=== PATIENT | female | born 1940 | race Caucasian/White ===

== ENCOUNTER 2016-12-25 09:49 | Emergency (ER) | payer MEDICARE, BC ==
[2016-12-25] MEDS ORDERED: SODIUM CHLORIDE 0.9% 500 ML IV STA (10:23)
[2016-12-25] MEDS ORDERED: MECLIZINE 12.5 MG TAB PO STA (10:23)
[2016-12-25 10:56] LABS: Glucose,Whole Blood 90 mg/dL (75-99)
--- NOTE | 2016-12-25 10:59 | ED ---
General Adult HPI - General Chief complaint: Dizziness Stated complaint: DIZZINESS, POSS MED REACTION Time Seen by Provider: 12/25/16 10:10 Source: patient, family, RN notes reviewed Mode of arrival: wheelchair Limitations: no limitations - History of Present Illness Initial comments: 76-year-old female presenting for dizziness. Patient states that symptoms have been going on since Friday. She states that last she saw a Neuropsychology Division Chief who put her on a Medrol Dosepak for skin rash. She also received a shot of steroid in the office at that time. She states that she had taken several days of steroid medication and then on Friday that's when the dizziness began. She states she stopped the steroid on Friday. The rash has resolved. States that she feels like the room spins in intense episodes that gradually improve with rest. This made worse with positional changes. She denies any history of vertigo. She denies any syncope. She denies any chest pain or shortness of breath associated. - Related Data Home Medications Medication Instructions Recorded Confirmed Aspirin 81 mg PO HS 12/25/16 12/25/16 Biotin 5,000 mcg PO DAILY 12/25/16 12/25/16 Ergocalciferol (Vitamin D2) 50,000 unit PO DAILY 12/25/16 12/25/16 [Vitamin D2] Fish Oil/Dha/Epa [Fish Oil 1,200 1 cap PO DAILY 12/25/16 12/25/16 mg Fish Oil] Glucosamine Sulfate 1,500 mg PO DAILY 12/25/16 12/25/16 Lisinopril-Hctz 10-12.5 mg 1 tab PO DAILY 12/25/16 12/25/16 [Zestoretic 10-12.5] predniSONE 1 mg PO DAILY 12/25/16 12/25/16 Previous Rx's Medication Instructions Recorded Meclizine [Antivert] 25 mg PO QID PRN #16 tab 12/25/16 Allergies Allergy/AdvReac Type Severity Reaction Status Date / Time No Known Allergies Allergy Verified 12/25/16 10:29 Review of Systems ROS Statement: Those systems with pertinent positive or pertinent negative responses have been documented in the HPI. ROS Other: All systems not noted in ROS Statement are negative. Past Medical History Past Medical History: Hypertension, Skin Disorder History of Any Multi-Drug Resistant Organisms: None Reported Past Surgical History: Orthopedic Surgery Additional Past Surgical History / Comment(s): foot Past Psychological History: No Psychological Hx Reported Smoking Status: Never smoker Past Alcohol Use History: Rare Past Drug Use History: None Reported General Exam - General Exam Comments Initial Comments: General: Awake and Alert. No acute distress. Does not appear acutely ill. Eyes: CR, EOM intact. No nystagmus. No scleral icterus. HENT: Atraumatic, normocephalic. Mucous membranes moist. Trachea midline. Neck: The neck is supple, there is no tenderness or JVD. Cardiovascular: Regular rate and rhythm. No murmur, rub, or gallop is appreciated. Distal pulses intact. Respiratory: Lungs are clear to auscultation bilaterally. No wheezes, rales, rhonchi. No respiratory distress. Gastrointestinal: Soft, Nontender. No rebound or guarding. Non-distended. No masses or organomegaly noted. No CVA tenderness. Musculoskeletal: No tenderness. Normal ROM. No gross deformity. No strength deficits. Neurological: A&Ox3. CN II-XII grossly intact, There are no obvious motor or sensory deficits. Coordination appears grossly intact. Speech is normal. Normal gait. Skin: Skin is warm and dry and no rashes or lesions are noted. Psychiatric: Cooperative, appropriate mood & affect, normal judgment. Limitations: no limitations Course Vital Signs 12/25/16 12/25/16 12/25/16 09:51 10:58 13:25 Temperature 96.8 F L 98.7 F Pulse Rate 57 L 55 L Pulse Rate [ 58 L Sitting] Pulse Rate [ 76 Standing] Pulse Rate [ 56 L Supine] Respiratory 16 18 Rate Blood Pressure 188/89 184/86 Blood Pressure 185/81 [Sitting] Blood Pressure 171/77 [Standing] Blood Pressure 171/77 [Supine] O2 Sat by Pulse 99 98 Oximetry EKG Findings - EKG Comments: EKG Findings:: EKG 10:37. Sinus rhythm. Rate 56. WI 156. QRS 72. QT/QTc 394 /380. Normal axis. No STEMI. Normal EKG. Medical Decision Making - Medical Decision Making 76-year-old female presenting for dizziness. Patient said she is feeling well and she is at rest on initial exam. Noted to have significant hypertension. She is a history of hypertension and didn't take her medications today. She states she does check her blood pressure at home is normally 140s over 80s. Eyes any headache or visual changes at this time. He denies any chest pain or shortness of breath. Lab workup grossly unremarkable. EKG without evidence of arrhythmia or ischemia. Discussed that her symptoms may be secondary to the steroids that she was on. Seems vertiginous versus orthostatic in nature. Lower suspicion of central vertigo or stroke at this time. She has no other neurological deficits on exam. Her gait is normal. She did receive meclizine and IV fluids and felt improved. Discussed symptomatic management at this time and close follow-up with PCP. She was noted to be significant hypertensive in the ED,. She does have history of hypertension and did take her meds today. Discussed following up with her PCP for repeat blood pressure and to continue taking her medications. Discussed slow position changes over the next few days. Rx for meclizine provided. Also discussed her abnormal thyroid function and follow-up for retesting in 1-2 weeks. Patient otherwise appears stable at this time for discharge home. Discussed concerning signs symptoms for immediate return to the ED. Patient is agreeable with plan and discharge home. - Lab Data Result diagrams: 12/25/16 10:56 12/25/16 10:56 Lab Results 12/25/16 12/25/16 12/25/16 Range/Units 10:43 10:56 10:56 WBC 8.2 (3.8-10.6) k/uL RBC 4.88 (3.80-5.40) m/uL Hgb 15.3 (11.4-16.0) gm/dL Hct 46.2 H (34.0-46.0) % MCV 94.7 (80.0-100.0) fL MCH 31.4 (25.0-35.0) pg MCHC 33.1 (31.0-37.0) g/dL RDW 12.7 (11.5-15.5) % Plt Count 302 (150-450) k/uL Neutrophils % 67 % Lymphocytes % 21 % Monocytes % 8 % Eosinophils % 2 % Basophils % 1 % Neutrophils # 5.4 (1.3-7.7) k/uL Lymphocytes # 1.7 (1.0-4.8) k/uL Monocytes # 0.6 (0-1.0) k/uL Eosinophils # 0.1 (0-0.7) k/uL Basophils # 0.1 (0-0.2) k/uL Sodium 143 (137-145) mmol/L Potassium 4.1 (3.5-5.1) mmol/L Chloride 101 (98-107) mmol/L Carbon Dioxide 29 (22-30) mmol/L Anion Gap 13 mmol/L BUN 19 H (7-17) mg/dL Creatinine 0.73 (0.52-1.04) mg/dL Est GFR (MDRD) Af Amer >60 (>60 ml/min/1.73 sqM) Est GFR (MDRD) Non-Af >60 (>60 ml/min/1.73 sqM) Glucose 92 (74-99) mg/dL POC Glucose (mg/dL) 90 (75-99) mg/dL POC Glu [employer] Sheets Cleaner Inspector ID Jesus Forde Calcium 10.7 H (8.4-10.2) mg/dL TSH 0.193 L (0.465-4.680) mIU/L Free T4 1.37 (0.78-2.19) ng/dL - EKG Data -: EKG Interpreted by [facility] EKG shows normal: sinus rhythm Rate: normal Disposition Clinical Impression: Dizziness, Essential (primary) hypertension Disposition: HOME SELF-CARE Condition: Stable Instructions: Dizziness (ED) Additional Instructions: Please follow up with your regular doctor in 1-2 weeks to recheck your thyroid function. Your TSH was low, but your Free T4 was within normal limits. Make sure to drink plenty of fluids to stay well hydrated. Change positions slowly and wait after standing for about 30 seconds to let your body compensate to help with dizziness. Prescriptions: Meclizine [Antivert] 25 mg PO QID PRN #16 tab PRN Reason: dizziness Referrals: Marce Candelaria MD [Primary Care Provider] - 1-2 days Time of Disposition: 13:00
[2016-12-25 11:12] LABS: Basophils # (A) 0.1 k/uL (0-0.2); Basophils % (A) 1 %; CH 31.3; CHCM 33.2; Eosinophils # (A) 0.1 k/uL (0-0.7); Eosinophils % (A) 2 %; HCT 46.2 % (34.0-46.0); HDW 2.21; HGB 15.3 gm/dL (11.4-16.0); Luc # (Auto) 0.21; Luc % (Auto) 3; Lymphocytes # (A) 1.7 k/uL (1.0-4.8); Lymphocytes % (A) 21 %; MCH 31.4 pg (25.0-35.0); MCHC 33.1 g/dL (31.0-37.0); MCV 94.7 fL (80.0-100.0); Mean Platelet Volume 7.6; Monocytes # (A) 0.6 k/uL (0-1.0); Monocytes % (A) 8 %; Neutrophils # (A) 5.4 k/uL (1.3-7.7); Neutrophils % (A) 67 %; RBC 4.88 m/uL (3.80-5.40); RDW 12.7 % (11.5-15.5); WBC 8.2 k/uL (3.8-10.6); WBC (Perox) 8.16
[2016-12-25 11:23] LABS: Anion Gap 13 mmol/L; Blood Urea Nitrogen 19 mg/dL (7-17); Calcium 10.7 mg/dL (8.4-10.2); Carbon Dioxide 29 mmol/L (22-30); Chloride 101 mmol/L (98-107); Glucose 92 mg/dL (74-99); Non-African American GFR(MDRD) >60 (>60 ml/min/1.73 sqM); Potassium 4.1 mmol/L (3.5-5.1); Sodium 143 mmol/L (137-145)
--- NOTE | 2016-12-25 12:44 | XR ---
EXAMINATION TYPE: XR chest 2V DATE OF EXAM: 12/25/2016 12:35 PM COMPARISON: NONE HISTORY: Syncope, dizzy TECHNIQUE: Frontal and lateral views of the chest are obtained. FINDINGS: There is no pneumothorax or pleural effusion, no evident pneumonia. Prominent lung volumes may be indicative of underlying COPD. Cardiac mediastinal silhouette, pulmonary vascularity and daniel are within normal limits. IMPRESSION: No acute cardiopulmonary process.
[2016-12-25 13:26] VITALS: BP 184/86; PULSE 55; RESP 18; TEMP 98.7
== END 2016-12-25 13:27 | disposition home or self-care (01) ==
LOC: EC 09:49
DX: R42 Dizziness and giddiness (principal); I10 Essential (primary) hypertension; L98.9 Disorder of the skin and subcutaneous tissue, unspecified; Z79.82 Long term (current) use of aspirin; Z79.52 Long term (current) use of systemic steroids; Z79.899 Other long term (current) drug therapy
CPT/HCPCS: 36415; 71020; 80048; 84439; 84443; 85025; 93005; 99284

== ENCOUNTER → 2017-11-06 | Outpatient (CLI) | payer MEDICARE, BC ==
--- NOTE | 2017-11-06 11:34 | CT ---
EXAMINATION TYPE: CT sinus wo con DATE OF EXAM: 11/06/2017 COMPARISON: NONE HISTORY: 77-year-old female cough with cyst found per patient CT DLP: 609.4 mGycm Automated exposure control for dose reduction was used. TECHNIQUE: Noncontrast axial views of the paranasal sinuses were obtained. Coronal reconstructions pe rformed. FINDINGS: Trace mucosal thickening within the maxillary sinuses. A tiny 4 mm mucosal retention cyst along the m edial wall of the right maxillary sinus. The sphenoid, ethmoid, and frontal sinuses are well-pneumatized. No air-fluid level. Reactive jean-paul- osteogenesis is not seen. There is no destruction of the osseous blanchard of the paranasal sinuses. The osteomeatal complexes are patent. Rightward nasal septal deviation. 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 The imaged brain shows mild to moderate generalized atrophy. The orbits are normal in appearance. The middle ear cavities are well pneumatized. Mastoid air cells are incompletely imaged. Reformatted images confirm above findings. IMPRESSION: 1. Only trace mucosal thickening in the maxillary sinuses. 2. Tiny 4 mm mucosal retention cyst right maxillary sinus. 3. 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 4. Rightward nasal septal deviation.
== END | disposition home or self-care (01) ==
LOC: RADCTMAIN 10:51
PROVIDERS: ATTEND Family Medicine
DX: J34.2 Deviated nasal septum (principal); R05 Cough
CPT/HCPCS: 70486